=== PATIENT | female | born 1995 | race Caucasian/White ===

== ENCOUNTER 2025-03-27 12:53 | Outpatient (CLI) | payer BC, SELFPAY ==
--- NOTE | ~2025-03-27 | US_ITS ---
EXAMINATION: US OB transvaginal DATE: 03/27/2025 13:17 INDICATION: Uncertain dating of first trimester TECHNIQUE: Real-time pelvic ultrasound utilizing both a transvaginal and transabdominal probe was performed. The interpreting radiologist was not present for the study. COMPARISON: None. FINDINGS: The uterus measures 9.4 x 6.2 x 5.0 cm. There is an intrauterine gestational sac. A yolk sac and pole are identified. The crown rump length measures 1.0 cm, which correlates with an estimated gestational age of 7 weeks and 1 days. There is a subtle weblike pattern of multiple nearly indiscernible thin internal septations in the fluid peripheral to the amnion. There is no discernible heart motion by M-mode Doppler consistent with demise. The right ovary measures 2.8 x 2.7 x 2.1 cm. The left ovary measures 2.6 x 2.1 x 1.6 cm. There is no free fluid in the pelvis. IMPRESSION: 1. Single intrauterine gestational sac with 10 mm pole consistent with a gestational age of 7 weeks and 1 day +/-5 days but without discernible heart motion consistent with demise. Reviewed, dictated and finalized at location A. IMPRESSION: 1. Single intrauterine gestational sac with 10 mm pole consistent with a gestational age of 7 weeks and 1 day +/-5 days but without discernible he art motion consistent with demise.
== END 2025-03-27 12:54 | disposition home or self-care (01) ==
LOC: MICIMG 12:54
DX: Z36.87 Encounter for antenatal screening for uncertain dates (principal); Z3A.01 Less than 8 weeks gestation of pregnancy
CPT/HCPCS: 76817